=== PATIENT | female | born 1985 | race Caucasian/White ===

== ENCOUNTER 2023-01-10 00:29 | Emergency (ER) | payer OTHER ==
[2023-01-10 01:22] LABS: Bacteria/HPF None Seen HPF (None Seen); Bilirubin Negative (Negative); Blood, Urine Negative (Negative); CAUTI Indications for Culture Pelvic or flank pain; Clarity Turbid (Clear); Glucose, Urine (Dipstick) Normal (Negative); Ketone, Urine Negative (Negative); Leukocyte 75 Leu/uL (Negative); Mucous/LPF Rare LPF (<2+); Nitrite Negative (Negative); Protein, Urine (Dipstick) 10 mg/dL (Neg-Trace); RBC/HPF 0-3 HPF (0-3); Specific Gravity, Urine 1.025 (1.002-1.036); Urobilinogen Normal mg/dL (Less than 2); pH, Urine 6.5 (5.0-9.0)
[2023-01-10] MEDS ORDERED: Ondansetron PF 4 MG/2 ML Vial ONE (01:23)
[2023-01-10] MEDS ORDERED: Ketorolac Tromethamine 30 MG/ML VIAL ONE (01:23)
[2023-01-10 01:24] LABS: Urine Culture Reflex No No
[2023-01-10 01:35] LABS: #Basophils 0.1 thou/uL (0.0-0.2); #Eosinphils 0.4 thou/uL (0.0-0.7); #Monocytes 0.7 thou/uL (0.11-0.59); #Neutrophils 5.8 thou/uL (1.40-6.50); %Basophils 0.6 % (0.0-1.0); %Eosinophils 3.8 % (0.0-10.0); %Monocytes 7.1 % (0.0-10.0); %Neutrophils 60.1 % (42.0-75.0); Hematocrit 34.2 % (36.0-47.0); Hemoglobin 11.2 g/dL (12.0-16.0); Mean Corpuscular HGB CONC 32.7 g/dL (32.0-36.0); Mean Corpuscular Hemoglobin 30.3 pg (27.0-31.0); Mean Corpuscular Volume 92.4 fl (78.0-98.0); Mean Platelet Volume 11.3 fL (7.4-10.4); Platelet Count 288 10x3/uL (130-400); RBC Distribution Width 14.3 % (11.5-14.5); White Blood Cell (WBC) Count 9.6 10x3/uL (4.8-10.8)
[2023-01-10 02:01] LABS: ALT (SGPT) 26 U/L (8-55); AST (SGOT) 20 U/L (5-34); Alkaline Phosphatase 79 U/L (40-110); Anion Gap 14 mmol/L (10-20); BUN (Urea Nitrogen) 14 mg/dL (7.0-18.7); Bilirubin, Total 0.6 mg/dL (0.2-1.2); Calc. Creatinine Clearance 0 mL/min (70-130); Calcium 9.1 mg/dL (7.8-10.44); Carbon Dioxide 21 mmol/L (22-29); Chloride 108 mmol/L (98-107); Estimated GFR 114; Globulin 3.3 g/dL (2.4-3.5); Glucose 100 mg/dL (70-105); Lipase 10 U/L (8-78); Potassium 3.7 mmol/L (3.5-5.1); Protein, Total 7.3 g/dL (6.0-8.3); Sodium 139 mmol/L (136-145)
[2023-01-10 03:40] LABS: Specific Gravity 1.025 (1.002-1.036)
[2023-01-10 03:49] LABS: Pregnancy Test - Urine (BHCG) Negative (Negative); Pregu Control Background? CLEAR/WHITE (CLR/WHITE); Pregu Control Bar Appear? YES (CONTROL BAR)
== END 2023-01-10 04:54 ==
LOC: EEVIPCON 00:29 → ERS 00:29
DX: N83.202 Unspecified ovarian cyst, left side (principal); D25.9 Leiomyoma of uterus, unspecified
CPT/HCPCS: 76856; 80053; 81001; 81025; 83690; 85025; 96374; 96375; J1885; J2405